=== PATIENT | male | born 1975 | race Caucasian/White ===

== ENCOUNTER 2017-09-21 14:30 | Outpatient (CLI) | payer BC | END 2017-09-21 14:31 | disposition home or self-care (01) | LOC: BICRAD 14:30 | PROVIDERS: ATTEND Family Medicine | DX: M79.672 Pain in left foot (principal); M17.12 Unilateral primary osteoarthritis, left knee; M77.32 Calcaneal spur, left foot ==

== ENCOUNTER 2022-04-09 08:20 | Outpatient (CLI) | payer BC | END 2022-04-09 08:21 | disposition home or self-care (01) | LOC: BICRAD 08:20 | PROVIDERS: ATTEND Dermatology | DX: L40.0 Psoriasis vulgaris (principal); L40.59 Other psoriatic arthropathy | CPT/HCPCS: 71046 ==

== ENCOUNTER 2023-06-15 08:18 | Outpatient (CLI) | payer BC | END 2023-06-15 08:19 | disposition home or self-care (01) | LOC: BICRAD 08:18 | PROVIDERS: ATTEND Dermatology | DX: Z11.1 Encounter for screening for respiratory tuberculosis (principal); L40.0 Psoriasis vulgaris; Z79.899 Other long term (current) drug therapy | CPT/HCPCS: 71046 ==

== ENCOUNTER 2023-12-07 16:00 | Outpatient (CLI) | payer BC | END 2023-12-07 16:01 | disposition home or self-care (01) | LOC: SLEEPLAB 16:00 | PROVIDERS: ATTEND Internal Medicine Critical Care Medicine | DX: G47.33 Obstructive sleep apnea (adult) (pediatric) (principal); R06.83 Snoring; D75.1 Secondary polycythemia; G47.10 Hypersomnia, unspecified; I10 Essential (primary) hypertension; G47.00 Insomnia, unspecified | CPT/HCPCS: 95810 ==

== ENCOUNTER 2024-01-12 16:00 | Outpatient (CLI) | payer BC | END 2024-01-12 16:01 | disposition home or self-care (01) | LOC: SLEEPLAB 16:00 | PROVIDERS: ATTEND Internal Medicine Critical Care Medicine | DX: G47.33 Obstructive sleep apnea (adult) (pediatric) (principal); D75.1 Secondary polycythemia; R06.83 Snoring | CPT/HCPCS: 95811 ==